=== PATIENT | male | born 1935 | race Two or more races ===

== ENCOUNTER 2017-01-30 10:23 | Emergency (ER) | payer MEDICARE, MEDICAID ==
[~2017-01-30] VITALS: Ht 165.1 cm; Wt 66.0 kg
[2017-01-30] MEDS ORDERED: GLIP5TAB12 PO (10:41)
[2017-01-30] MEDS ORDERED: METF500T4 PO (10:41)
[2017-01-30] MEDS ORDERED: LOSA50TA20 PO (10:41)
[2017-01-30] MEDS ORDERED: HYDR12.529 PO (10:41)
[2017-01-30] MEDS ORDERED: ASPI-1159 PO (10:41)
[2017-01-30 11:45] LABS: BASOPHILS % 0.2 % (0.0-2.0); EOSINOPHILS % 2.8 % (0.0-5.0); HEMATOCRIT. 35.9 % (42.0-52.0); HEMOGLOBIN. 12.4 g/dL (14.0-18.0); LYMPHOCYTES % 7.5 % (20.0-50.0); MEAN CORPUSCULAR HEMOGLOBIN 29.4 pg (28.0-32.0); MEAN CORPUSCULAR VOLUME 85.4 fL (80.0-94.0); MEAN PLATELET VOLUME 8.4 fl (7.4-10.4); MONOCYTES % 9.4 % (2.0-8.0); NEUTROPHILS % 80.1 % (40.0-76.0); PLATELET 195 x1000/uL (130-400); RED CELL DISTRIBUTION WIDTH 14.2 % (11.6-14.6)
[2017-01-30 12:01] LABS: CARBON DIOXIDE 29 mEq/L (21-32); CHLORIDE 100 mEq/L (98-107); TROPONIN I < 0.02 ng/mL (0.00-0.04)
[2017-01-30 12:02] LABS: PROTHROMBIN TIME 10.4 sec
[2017-01-30 13:01] VITALS: BP 145/66
== END 2017-01-30 13:02 | disposition home or self-care (01) ==
LOC: ER 10:50
DX: S80.01XA Contusion of right knee, initial encounter (principal); R55 Syncope and collapse; E11.9 Type 2 diabetes mellitus without complications; I10 Essential (primary) hypertension; Z85.46 Personal history of malignant neoplasm of prostate; Z85.72 Personal history of non-Hodgkin lymphomas; Z87.891 Personal history of nicotine dependence; Z79.82 Long term (current) use of aspirin; Z98.890 Other specified postprocedural states; X58.XXXA Exposure to other specified factors, initial encounter; Y93.89 Activity, other specified; Y99.8 Other external cause status; Y92.89 Other specified places as the place of occurrence of the external cause
CPT/HCPCS: 36415; 71010; 73562; 80048; 83880; 84484; 85025; 85610; 93005; 99285

== ENCOUNTER 2017-03-08 16:32 | Emergency (ER) | payer MEDICARE, MEDICAID ==
[~2017-03-08] VITALS: Ht 165.1 cm; Wt 67.0 kg
[~2017-03-08 16:32] MED LIST: ASPI-1159 PO; GLIP5TAB12 PO; HYDR12.529 PO; LOSA50TA20 PO; METF500T4 PO
[2017-03-08 21:33] VITALS: BP 151/77
== END 2017-03-08 21:20 | disposition home or self-care (01) ==
LOC: ER 16:32
DX: H92.02 Otalgia, left ear (principal); Z98.890 Other specified postprocedural states
CPT/HCPCS: 99282

== ENCOUNTER 2022-02-12 21:16 | Emergency (ER) | payer MEDICARE, MEDICAID ==
[~2022-02-12] VITALS: Ht 165.1 cm; Wt 56.0 kg
[~2022-02-12 21:16] MED LIST changes: -ASPI-1159 PO; +ASPI-1497 PO; -LOSA50TA20 PO; +LOSA50TA41 PO; +METF-414 PO; -METF500T4 PO
[2022-02-12] MEDS ORDERED: TETANUS, DIPHTHERIA, PERTUSSIS VAC/PF 0.5ML (>10YR OLD) IM ONE (22:45)
[2022-02-12] MEDS ORDERED: BACITRACIN ZINC OINT UDPKT TOP ONE (22:45)
[2022-02-12] MEDS ORDERED: CEPH250C2 MT (23:14)
[2022-02-12 23:30] VITALS: BP 124/52
== END 2022-02-12 23:35 | disposition home or self-care (01) ==
LOC: ER 21:16
DX: S41.102A Unspecified open wound of left upper arm, initial encounter (principal); W01.0XXA Fall on same level from slipping, tripping and stumbling without subsequent striking against object, initial encounter; Y93.89 Activity, other specified; Y92.9 Unspecified place or not applicable; I11.0 Hypertensive heart disease with heart failure; I50.9 Heart failure, unspecified; E78.00 Pure hypercholesterolemia, unspecified; E11.9 Type 2 diabetes mellitus without complications; Z95.0 Presence of cardiac pacemaker; Z79.82 Long term (current) use of aspirin; Z85.46 Personal history of malignant neoplasm of prostate; Z98.890 Other specified postprocedural states
CPT/HCPCS: 90471; 90715; 99283